=== PATIENT | female | born 1980 | race Caucasian/White ===

== ENCOUNTER 2017-03-30 18:30 | Emergency (ER) | payer OTHER ==
[~2017-03-30] VITALS: Ht 177.8 cm; Wt 157.7 kg
[2017-03-30 18:43] VITALS: BP 157/87
[2017-03-30] MEDS ORDERED: DIPHENHYDRAMINE 25 MG CAPSULE ONE (19:22)
[2017-03-30] MEDS ORDERED: FAMOTIDINE 20 MG TABLET ONE (19:23)
[2017-03-30] MEDS ORDERED: ALBUTEROL SULFATE 2.5 MG/3 ML NPPB ONE (19:30)
[2017-03-30] MEDS ORDERED: DIPHENHYDRAMINE 25 MG CAPSULE PO ONE (19:30)
[2017-03-30] MEDS ORDERED: FAMOTIDINE 20 MG TABLET PO ONE (19:30)
[2017-03-30] MEDS ORDERED: ALBUTEROL SULFATE 2.5 MG/3 ML ONE (19:30)
== END 2017-03-30 20:04 | disposition home or self-care (01) ==
LOC: ED 19:58
DX: J20.9 Acute bronchitis, unspecified (principal); J45.31 Mild persistent asthma with (acute) exacerbation; J06.9 Acute upper respiratory infection, unspecified; R21 Rash and other nonspecific skin eruption
CPT/HCPCS: 71020; 94640; 99284; J7512; Q0163; J7613